=== PATIENT | male | born 1980 ===

== ENCOUNTER 2024-12-25 21:52 | Emergency (ER) | payer SELFPAY ==
[~2024-12-25] VITALS: Ht 172.7 cm; Wt 93.0 kg
[2024-12-25] MEDS ORDERED: ERYT.5TO LEFTEYE (22:32)
== END 2024-12-25 22:40 | disposition home or self-care (01) ==
LOC: ER 21:52
DX: H01.005 Unspecified blepharitis left lower eyelid (principal); Z59.89 Other problems related to housing and economic circumstances; Z79.2 Long term (current) use of antibiotics
CPT/HCPCS: 99282